=== PATIENT | female | born 1945 | race Caucasian/White ===

== ENCOUNTER → 2018-12-11 | Outpatient (CLI) | payer OTHER ==
[2018-12-11 09:38] LABS: CREATININE 1.1 mg/dL (0.6-1.0)
== END ==
LOC: LAB 08:56
PROVIDERS: Nuclear Medicine Nuclear Cardiology
DX: Z01.812 Encounter for preprocedural laboratory examination (principal); I71.4 Abdominal aortic aneurysm, without rupture; I71.2 Thoracic aortic aneurysm, without rupture; Z90.49 Acquired absence of other specified parts of digestive tract

== ENCOUNTER → 2020-02-10 | Outpatient (CLI) | payer OTHER | LOC: SJCVC 13:53 | PROVIDERS: ATTEND Nuclear Medicine Nuclear Cardiology | DX: I71.2 Thoracic aortic aneurysm, without rupture (principal); I71.4 Abdominal aortic aneurysm, without rupture; I72.8 Aneurysm of other specified arteries; I73.9 Peripheral vascular disease, unspecified; I10 Essential (primary) hypertension; I25.10 Atherosclerotic heart disease of native coronary artery without angina pectoris; J44.9 Chronic obstructive pulmonary disease, unspecified; E78.00 Pure hypercholesterolemia, unspecified; F17.200 Nicotine dependence, unspecified, uncomplicated; Z79.899 Other long term (current) drug therapy ==

== ENCOUNTER 2020-02-25 21:03 | Inpatient (IN) | payer OTHER ==
[~2020-02-25] VITALS: Ht 165.1 cm; Wt 71.7 kg
[2020-02-25 22:19] VITALS: BP 121/72
[2020-02-25] MEDS ORDERED: ASA81BEC PO ×2 (23:59)
[2020-02-26] MEDS ORDERED: NORVASC5 M1 PO
[2020-02-26] MEDS ORDERED: ATORVASTATIN CA20 MG PO (00:01)
[2020-02-26] MEDS ORDERED: CLOPIDOGREL75 MG PO (00:01)
[2020-02-26] MEDS ORDERED: PRINIVIL20 MG PO (00:02)
[2020-02-26] MEDS ORDERED: TOPROL XL25 MG PO (00:04)
[2020-02-26] MEDS ORDERED: PROTONIX40 M2 PO (00:05)
--- NOTE | 2020-02-26 01:40 | NUR ---
PT ARRIVED ON THE FLOOR AROUND 2209, DIRECT ADMITTED FROM [facility], PT IS A 74 YEAR OLD FEMALE, ALERT ORIENTEDX4, PLEASANT, MAKES NEEDS KNOWN, COMPLAINED OF PAIN OF A 7 ON HER LEFT LOWER QUADRANT AND LEFT LOWER BACK/FLANK, ADMISSION ASSESSMENT COMPLAETED AND CHARTED, ORDERS RECEIVED AND IMPLEMENTED, ST ON THE MONITOR, DENIES SOA, MED RECONCILLIATION DONE, PAIN MEDICATION GIVEN WITH PARTIAL RELIEF, STATED THAT HER LAST BM WAS A WEEK AGO, MIRALAX GIVEN, PT DENIES HAVING CONCERNS, STABLE, NO ACUTE DISTRESS NOTED AT THIS TIME, WILL CONTINUE TO MONITOR
[2020-02-26 02:00] VITALS: BP 121/72
[2020-02-26 04:34] VITALS: BP 122/60
[2020-02-26 05:24] LABS: HEMATOCRIT 38.1 % (37.0-47.0); HEMOGLOBIN 12.7 gm/dL (12.0-15.0); MCH 31.2 pg (26.0-34.0); MCHC 33.3 g/dL (28.0-37.0); MCV 93.8 fL (80.0-100.0); RBC 4.06 mil/uL (4.20-5.00); RDW 14.7 % (10.5-14.5); WBC 11.1 thou/uL (4.0-11.0)
[2020-02-26 05:37] LABS: CALCIUM 8.5 mg/dL (8.5-10.1); CREATININE 1.1 mg/dL (0.6-1.0); MAGNESIUM 2.2 mg/dL (1.8-2.4); POTASSIUM 4.6 mmol/L (3.5-5.1)
[2020-02-26 07:38] VITALS: BP 131/90
--- NOTE | 2020-02-26 10:20 | NUR ---
Chart reviewed and discussed with the care team. Pt is from home and lives indep with her spouse. No DME. She was here two weeks ago and had two heart stents. Dc home today pending cardiac clearance. No cm interventions indicated.
[2020-02-26 10:41] LABS: ALBUMIN 2.3 g/dL (3.4-5.0); TOTAL PROTEIN 6.7 g/dL (6.4-8.2)
[2020-02-26 11:00] VITALS: BP 132/64
[2020-02-26 15:13] VITALS: BP 115/58
--- NOTE | 2020-02-26 15:50 | NUR ---
patient transferred to [facility] from [facility] for back pain possible AAA. met with patient. She resides in independent home with 3 steps and all needs on one level. Her son lives with her in the home. 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 No hx of dme. no hx of HH care. PCP Dr Seymour. Therapy evals in process.
--- NOTE | 2020-02-26 20:32 | NUR ---
RECEIVED PT'S CARE AROUND 0740; PT. ON BED; ALERT; DURING AM ASSESSMENT PT. AOX4; C/O PAIN OVER L. SIDE BACK; LIDOCAINE APPLIED; AM MEDICATIONS GIVEN; GONE FOR CT DURING AM; ST ON THE MONITOR; IV FLUIDS STARTED; EDUCATED ABOUT FALL PRECAUTIONS; ST. UNDERSTANDING; PHYSICIAN NOTIFIED DURING ROUNDING ABOUT CONSTIPATION; MEDICATION GIVEN; STOOL SAMPLE COLLECTED; MONITORING; ASSESSMENT CHARGED; FOLLOWING POC; PASSED ON REPORT;
[2020-02-26 20:33] VITALS: BP 102/52
[2020-02-27 04:46] VITALS: BP 99/65
--- NOTE | 2020-02-27 07:41 | NUR ---
ASSUMED PT CARE AT AROUND 1900, PT IS AWAKE, ALERT AND ORIENTED, SR ON THE MONITOR, CO LOWER BACK PAIN, PAIN MEDS GIVEN ORDERED WITH RELIEF, MEDS GIVED ORDERED, ASSESSMENTS CHARTED, DENIES SOA, REMAINED ON RA, SATS STABLE, NO ACUTE DISTRESS NOTED, PASSED ON REPORT TO DAY NURSE
[2020-02-27 08:37] LABS: HEMATOCRIT 37.3 % (37.0-47.0); HEMOGLOBIN 12.7 gm/dL (12.0-15.0); MCH 31.6 pg (26.0-34.0); MCHC 34.1 g/dL (28.0-37.0); MCV 92.8 fL (80.0-100.0); RBC 4.02 mil/uL (4.20-5.00); RDW 14.5 % (10.5-14.5); WBC 10.1 thou/uL (4.0-11.0)
[2020-02-27 09:00] VITALS: BP 128/54
[2020-02-27 09:15] LABS: CALCIUM 9.3 mg/dL (8.5-10.1); CREATININE 1.2 mg/dL (0.6-1.0); MAGNESIUM 2.2 mg/dL (1.8-2.4); POTASSIUM 4.8 mmol/L (3.5-5.1)
[2020-02-27 11:38] VITALS: BP 133/55
--- NOTE | 2020-02-27 13:26 | NUR ---
Chart reveiwed and discussed with the care team. Pt did well with therapy. Still on iv atb for diverticulitis. Possible dc home with family over the weekend if improved. No cm interventions indicated at this time. Will remain available should dc needs arise.
[2020-02-27 16:52] VITALS: BP 147/62
--- NOTE | 2020-02-27 18:28 | NUR ---
RECEIVED PT'S CARE AROUND 15; PT. RESTING WITH EYES CLOSED; SLEEP INTERRUPTED DURING SHIFT CHANGED; ALERT; DURING AM ASSESSMENT PT. AOX4; NO C/O PAIN; REFUSED LIDOCAINE PATCH; AM MEDICATIONS GIVEN; PER GI MANTAIN DIET DUE TO POOR APPETITE; AROUND NOON PT. C/O NAUSEA & VOMITING; GI SWITCHING OPERATOR NOTIFIED; ORDERS RECEIVED; NAUSEA MEDICATION GIVEN; RE-ASSESSMENT PT. ST. NO NAUSEA; REQUESTED PRN PAIN MEDICATION DURING THE EVENING; NOTICED INCREASE COUGH & SOB; 02 2L; PHYSICIAN PAGED; ORDERS RECEIVED; GONE FOR XRAY; FLUIDS STOPPED; MONITORING; SR ON THE MONITOR; ABLE TO HAVE A BM; ASSESSMENT CHARGED; FOLLOWING POC; WILL PASS ON REPORT;
[2020-02-27 20:28] VITALS: BP 114/56
[2020-02-28] VITALS (8 sets, daily range): BP systolic 119–147; BP diastolic 53–65
--- NOTE | 2020-02-28 03:10 | NUR ---
ASSUMED PT CARE AT AROUND 1900, PT IS AWAKE, ALERT AND ORIENTED, SR ON THE MONITOR, DENIES PAIN OR SOB, REMAINS ON 2L NC, 02SATS IN THE LOW 90S, ASSESSMENTS CHARTED, RECEIVED IV ABX ORDERED, MEDICATIONS GIVEN PER SEP, NO ACUTE DISTRESS OVERNIGHT, SLEPT WELL, WILL CONTINUE TO MONITOR
[2020-02-28 05:29] LABS: HEMATOCRIT 35.6 % (37.0-47.0); HEMOGLOBIN 11.8 gm/dL (12.0-15.0); MCH 31.1 pg (26.0-34.0); MCHC 33.2 g/dL (28.0-37.0); MCV 93.7 fL (80.0-100.0); RBC 3.81 mil/uL (4.20-5.00); RDW 14.6 % (10.5-14.5); WBC 9.4 thou/uL (4.0-11.0)
[2020-02-28 05:43] LABS: CALCIUM 8.8 mg/dL (8.5-10.1); CREATININE 1.2 mg/dL (0.6-1.0); POTASSIUM 4.3 mmol/L (3.5-5.1)
--- NOTE | 2020-02-28 16:48 | NUR ---
PT CARE ASSUMED AT 0700. ASSESSMENTS CHARTED. MEDICATION CHARTED. LFA IV LEAKED SLIGHTLY; IV RESECURED. PT IS UP AD LAURENT. PT IS A POSSIBLE DISCHARGE FOR TOMORROW.
--- NOTE | 2020-02-29 03:43 | NUR ---
ASSUMED CARE OF PATIENT AT 1900. PATIENT C/O LOWER BACK PAIN DURING NOC. ADMINISTERED PRN NORCO ORDERED. PATIENT AMBULATES IN ROOM WITHOUT ASSISTANCE. PATIENT RESTED WELL THROUGH NIGHT AND APPEARS TO BE PROGRESSING WELL TOWARDS GOALS.
[2020-02-29 04:20] VITALS: BP 117/53
[2020-02-29 07:45] VITALS: BP 136/61
[2020-02-29 08:02] VITALS: BP 136/61
[2020-02-29] MEDS ORDERED: FLAGYL500 M1 PO (11:16)
[2020-02-29] MEDS ORDERED: SPIRIVA INH (11:17)
[2020-02-29] MEDS ORDERED: LEVAQUIN 750 M750 MG PO (11:18)
[2020-02-29 11:45] VITALS: BP 136/61
[2020-02-29 12:14] VITALS: BP 136/61
--- NOTE | 2020-02-29 13:51 | NUR ---
PT CARE ASSUMED AT 0700. ASSESSMENTS CHARTED. MEDICATIONAS CHARTED. LIDOCAINE PATCH TO LT BACK. PT TO BE DISCHARGED TO HOME. IV/D/C'D. TELEMETRY D/C'D.
== END 2020-02-29 13:02 | disposition home or self-care (01) | DRG 391 ==
LOC: 2N 21:03
PROVIDERS: Nurse Practitioner Family; ADMIT Internal Medicine; ATTEND Internal Medicine
DX: K57.32 Diverticulitis of large intestine without perforation or abscess without bleeding (principal); E43 Unspecified severe protein-calorie malnutrition; E87.1 Hypo-osmolality and hyponatremia; I71.4 Abdominal aortic aneurysm, without rupture; K21.9 Gastro-esophageal reflux disease without esophagitis; I25.10 Atherosclerotic heart disease of native coronary artery without angina pectoris; I73.9 Peripheral vascular disease, unspecified; M81.0 Age-related osteoporosis without current pathological fracture; K59.00 Constipation, unspecified; R11.0 Nausea; I71.2 Thoracic aortic aneurysm, without rupture; E78.5 Hyperlipidemia, unspecified; D72.829 Elevated white blood cell count, unspecified; M54.5 Low back pain; R63.0 Anorexia; M79.632 Pain in left forearm; R09.02 Hypoxemia; J43.9 Emphysema, unspecified; I10 Essential (primary) hypertension; Z68.26 Body mass index [BMI] 26.0-26.9, adult; Z90.710 Acquired absence of both cervix and uterus; Z90.49 Acquired absence of other specified parts of digestive tract; Z87.891 Personal history of nicotine dependence; Z79.82 Long term (current) use of aspirin; Z79.899 Other long term (current) drug therapy
CPT/HCPCS: 10081